=== PATIENT | male | born 1985 | race Caucasian/White ===

== ENCOUNTER 2023-11-15 13:25 | Day surgery (SDC) | payer OTHER ==
[2023-11-15] MEDS ORDERED: BUPIVACAINE 0.5% VIAL IJ ONE (13:26)
[2023-11-15] MEDS ORDERED: Depo-Medrol 40 MG/ML IM ONE (13:26)
[2023-11-15] MEDS ORDERED: DIPRIVAN 200 MG/20 ML IV ONE (14:53)
[2023-11-15] MEDS ORDERED: Versed 2 MG/2 ML Injection ONE (14:53)
[2023-11-15] MEDS ORDERED: Lactated Ringers 1,000 ML IV ONE (16:19)
--- NOTE | 2023-11-15 16:27 | XRAY ---
Indication: Bilateral hip injection. Intraoperative fluoroscopy provided for 18 seconds. 2 digital spot image submitted for interpretation demonstrates needle tip projecting lateral to left and right femur necks . Small amount of contrast injected for needle tip placement. Correlate with intraoperative findings/report.
--- NOTE | 2023-11-15 16:51 | XRAY ---
18 seconds of fluoroscopy was used in surgery for a bilateral intra-articular hip injection.
== END 2023-11-15 15:22 | disposition home or self-care (01) ==
LOC: SDC-PAIN 13:25
PROVIDERS: ATTEND Psychiatry & Neurology Pain Medicine
DX: M16.0 Bilateral primary osteoarthritis of hip (principal)
CPT/HCPCS: 20610; 73521; 77002; J1030; J2250; J2704; Q9966